=== PATIENT | female | born 2005 | race Caucasian/White ===

== ENCOUNTER 2025-06-17 15:09 | Inpatient (IN) | payer OTHER, SELFPAY ==
[2025-06-17] VITALS (12 sets, daily range): BP systolic 103–128; BP diastolic 57–75; PULSE 110–137; RESP 14–42; TEMP 38.1–38.4; O2SAT 98–100; BMI 23.8
[2025-06-17] MEDS: LIDOCAINE/PRILOCAINE 5 GM TOP (15:15)
--- NOTE | 2025-06-17 16:31 | ED.BACK ---
HPI - Back Pain/Injury General Chief Complaint: Back Pain/Injury Stated Complaint: back pain, n/v x 2 days Time Seen by Provider: 06/17/25 16:05 Source: patient History of Present Illness HPI Narrative: This is a 19-year-old female presents emergency department due to a week history of back pain, nausea, vomiting. She states that about a week ago she had dysuria and ?1 drop? of urine with blood noted in it. She went [place] an [place] the area where she was took some herbal supplements which she states helped with her dysuria but over the course of this last week she was developed bilateral back pain, nausea, and multiple episodes of vomiting last night. She also feels generally unwell. She denies any discharge. No other pertinent medical history. Does also report some suprapubic discomfort. Related Data Home Medications ?Medication ?Instructions ?Recorded ?Confirmed cholecalciferol (vitamin D3) 10 400 unit PO ##0 04/24/16 mcg/mL (400 unit/mL) oral drops Previous Rx's ?Medication ?Instructions ?Recorded amoxicillin 500 mg-potassium 1 tab PO TID #30 tabs 06/19/25 clavulanate 125 mg tablet (Augmentin) Allergies Allergy/AdvReac Type Severity Reaction Status Date / Time No Known Drug Allergies Allergy Verified 06/17/25 16:55 Review of Systems Review of Systems Narrative: GENERAL: Denies chills, fatigue, malaise, fever, sweats. HEENT: Denies sinus pain, ear pain, sore throat, difficulty swallowing, dizziness. RESPIRATORY: Denies dyspnea, cough, wheezing, hemoptysis, sputum. CARDIOVASCULAR: Denies chest pain, palpitations, orthopnea, edema, GASTROINTESTINAL: Reports nausea and vomiting Denies abdominal pain, diarrhea, constipation, melena. : Denies dysuria, frequency, incontinence, hematuria, urinary retention. MUSCULOSKELETAL: denies weakness, joint pain, or bony pain SKIN: Denies rash, skin lesions, or other NEUROLOGIC: Denies weakness, headache, numbness, change in speech, confusion, seizures, incoordination. PSYCHIATRIC: No concerning psychosocial issues. 12 point review of systems is negative except for those stated above Patient History Family History Grandfather Cancer Social History household members: significant other Smoking Status: Never smoker Smoking Status: Never smoker Exam Narrative Exam Narrative: GENERAL: Well-developed patient, in mild distress. HEAD: Atraumatic. Normocephalic. EYES: Pupils equal round and reactive. Extraocular motions intact. No scleral icterus. No injection or drainage. ENT: Nose without bleeding, purulent drainage. Throat without erythema, tonsillar hypertrophy or exudate. Airway patent. NECK: Trachea midline. Non tender EXTREMITIES: No edema or joint tenderness. NEURO: AOx3. SKIN: No rash or erythema of visible areas Abdomen: Suprapubic tenderness to palpation Back: Bilateral CVA tenderness to palpation Initial Vital Signs Initial Vital Signs: Vital Signs Temperature 101 F H 06/17/25 16:00 Pulse Rate 137 H 06/17/25 16:00 Respiratory Rate 18 06/17/25 16:00 Blood Pressure 114/72 06/17/25 16:00 Pulse Oximetry 98 06/17/25 16:00 Oxygen Delivery Method Room Air 06/17/25 16:00 Course Orders Ordered: Discontinued Medications Acetaminophen (Acetaminophen 325 Mg Tablet) 650 mg PO NOW ONE Stop: 06/17/25 18:35 Last Admin: 06/17/25 18:41 Dose: 650 mg Documented By: RB Acetaminophen (Acetaminophen 325 Mg Tablet) 1,000 mg PO Q6H PRN PRN Reason: Fever/Mild Pain (1-3) Last Admin: 06/19/25 04:07 Dose: 975 mg Documented By: Admin: 06/18/25 05:11 Dose: 1,000 mg Documented By: AD Hydromorphone HCl (Hydromorphone 1 Mg/Ml Syringe) 1 mg IV Q3H PRN PRN Reason: pain severe Last Admin: 06/18/25 23:30 Dose: 1 mg Documented By: Admin: 06/18/25 15:53 Dose: 1 mg Documented By: ZH Piperacillin Sod/Tazobactam (Sod 4.5 gm/ Sodium Chloride) 100 mls @ 200 mls/hr IV NOW ONE Stop: 06/17/25 16:10 Last Infusion: 06/17/25 17:27 Dose: Infused Documented By: Admin: 06/17/25 16:51 Dose: 200 mls/hr Documented By: CTS Sodium Chloride (Normal Saline 0.9%) 1,769.01 mls @ 589.67 mls/hr 30 ml/kg infuse over 3 hr (1769.01 ml) IV NOW ONE Stop: 06/17/25 19:08 Last Infusion: 06/17/25 18:59 Dose: Infused Documented By: Admin: 06/17/25 16:42 Dose: 589.67 mls/hr Documented By: MIREILLE Lactated Ringer's (Lactated Ringers) 1,000 mls @ 200 mls/hr IV CONT BRANDI Last Infusion: 06/19/25 00:55 Dose: Infused Documented By: Admin: 06/18/25 14:46 Dose: 200 mls/hr Documented By: Infusion: 06/18/25 14:46 Dose: Infused Documented By: Admin: 06/18/25 10:12 Dose: 200 mls/hr Documented By: Infusion: 06/18/25 06:21 Dose: Infused Documented By: Admin: 06/18/25 01:21 Dose: 200 mls/hr Documented By: AD Piperacillin Sod/Tazobactam (Sod 4.5 gm/ Sodium Chloride) 100 mls @ 25 mls/hr IV Q8H BRANDI Last Infusion: 06/18/25 08:46 Dose: Infused Documented By: Admin: 06/18/25 01:30 Dose: 25 mls/hr Documented By: AD Piperacillin Sod/Tazobactam (Sod 4.5 gm/ Sodium Chloride) 100 mls @ 25 mls/hr IV Q8H BRANDI Stop: 06/18/25 14:00 Last Infusion: 06/18/25 14:47 Dose: Infused Documented By: Admin: 06/18/25 10:11 Dose: 25 mls/hr Documented By: PAULA Sodium Chloride (Normal Saline 0.9%) 1,000 mls @ 150 mls/hr IV CONT BRANDI Last Admin: 06/19/25 09:45 Dose: 150 mls/hr Documented By: Infusion: 06/19/25 09:45 Dose: Infused Documented By: Admin: 06/19/25 03:37 Dose: 150 mls/hr Documented By: Infusion: 06/19/25 03:37 Dose: Infused Documented By: Admin: 06/18/25 20:49 Dose: 150 mls/hr Documented By: Admin: 06/18/25 10:01 Dose: Not Given Documented By: PAULA Piperacillin Sod/Tazobactam (Sod 3.375 gm/ Sodium Chloride) 100 mls @ 25 mls/hr IV Q8H [facility] Last Infusion: 06/19/25 13:44 Dose: Infused Documented By: Admin: 06/19/25 09:44 Dose: 25 mls/hr Documented By: Infusion: 06/19/25 06:43 Dose: Infused Documented By: Admin: 06/19/25 02:10 Dose: 25 mls/hr Documented By: Infusion: 06/19/25 00:07 Dose: Infused Documented By: Admin: 06/18/25 17:46 Dose: 25 mls/hr Documented By: PAULA Ibuprofen (Ibuprofen 600 Mg Tablet) 600 mg PO Q6HR PRN PRN Reason: Fever/Mild Pain (1-3) Lactulose (Lactulose 20 Gm/30 Ml Solution) 20 gm PO NOW ONE Stop: 06/19/25 11:23 Last Admin: 06/19/25 11:46 Dose: 20 gm Documented By: FELICIA Lidocaine/Prilocaine (Lidocaine/Prilocaine 5 Gm) 5 gm TOP NOW ONE Stop: 06/17/25 16:12 Last Admin: 06/17/25 15:15 Dose: 5 gm Documented By: MIREILLE Morphine Sulfate (Morphine 4 Mg/Ml Inj) 4 mg IV NOW ONE Stop: 06/17/25 16:56 Last Admin: 06/17/25 17:00 Dose: 4 mg Documented By: MIREILLE Naloxone HCl (Naloxone 0.4 Mg/Ml Vial) 0.2 mg IV Q2MIN PRN PRN Reason: Opiate Reversal Ondansetron HCl (Ondansetron 4 Mg/2 Ml Inj) 4 mg IV NOW ONE Stop: 06/17/25 17:03 Last Admin: 06/17/25 17:06 Dose: 4 mg Documented By: MIREILLE Ondansetron HCl (Ondansetron 4 Mg/2 Ml Inj) 4 mg IV Q4HR PRN PRN Reason: nausea Last Admin: 06/19/25 09:44 Dose: 4 mg Documented By: Admin: 06/18/25 22:01 Dose: 4 mg Documented By: Admin: 06/18/25 12:15 Dose: 4 mg Documented By: Admin: 06/18/25 08:01 Dose: 4 mg Documented By: Admin: 06/17/25 23:45 Dose: 4 mg Documented By: ALEM Oxybutynin (Oxybutynin 5 Mg Tablet) 5 mg PO NOW ONE Stop: 06/17/25 23:28 Last Admin: 06/18/25 02:00 Dose: 5 mg Documented By: ALEM Oxycodone HCl (Oxycodone Ir 5 Mg Tablet) 5 mg PO Q3H PRN PRN Reason: Pain, Moderate (4-6) Oxycodone HCl (Oxycodone Ir 10 Mg Tablet) 10 mg PO Q3H PRN PRN Reason: Pain, Severe (7-10) Last Admin: 06/18/25 05:05 Dose: 10 mg Documented By: Admin: 06/17/25 23:45 Dose: 10 mg Documented By: ALEM Vital Signs Vital signs: Vital Signs - 8 hr 06/17/25 16:00 06/17/25 16:37 06/17/25 16:37 Temperature 101 F H Pulse Rate 137 H 121 H Respiratory Rate 18 Blood Pressure 114/72 103/61 Pulse Oximetry 98 99 Oxygen Delivery Method Room Air 06/17/25 17:00 06/17/25 17:30 06/17/25 17:44 Temperature Pulse Rate 117 H 114 H 113 H Respiratory Rate 29 H 42 H 14 Blood Pressure Pulse Oximetry 100 100 100 Oxygen Delivery Method 06/17/25 17:44 06/17/25 17:54 06/17/25 17:54 Temperature Pulse Rate 111 H Respiratory Rate 25 H Blood Pressure 106/59 L 109/57 L Pulse Oximetry 100 Oxygen Delivery Method 06/17/25 18:00 06/17/25 18:00 06/17/25 18:43 Temperature 101.2 F H Pulse Rate 111 H 115 H Respiratory Rate 21 27 H Blood Pressure 110/57 L Pulse Oximetry 100 99 Oxygen Delivery Method 06/17/25 18:43 Temperature Pulse Rate Respiratory Rate Blood Pressure 109/67 Pulse Oximetry Oxygen Delivery Method MDM - Back Pain/Injury Lab Data 06/18/25 03:52 06/18/25 03:52 Labs: Lab Results 06/17/25 06/17/25 Range/Units 16:26 18:32 WBC 19.5 H (4.5-11.0) X10^3/uL RBC 4.20 (4.0-5.2) X10^6/uL Hgb 12.1 (12.0-16.0) g/dL Hct 35.7 L (36-46) % MCV 85.1 (80-100) fL MCH 28.8 (26-34) PG MCHC 33.9 (30-36) % RDW 13.7 (11.6-14.8) % Plt Count 266 (150-400) X10^3/uL Neut % (Auto) Not Reportable Lymph % (Auto) Not Reportable [place] % (Auto) Not Reportable Eos % (Auto) Not Reportable Baso % (Auto) Not Reportable Lymph # (Auto) Not Reportable [place] # (Auto) Not Reportable Baso # (Auto) Not Reportable Total Counted 100 Seg Neutrophils % 79.0 H (37-67) % Band Neutrophils % 11.0 H (3-7) % Lymphocytes % (Manual) 4.0 L (25-45) % Monocytes % (Manual) 6.0 (2-11) % Neutrophils # (Manual) 69440 H (5768-9511) /uL Toxic Granulation Present H Toxic Vacuolation Present H RBC Morphology Normal morphology Sodium 132 L (137-145) mmol/L Potassium 3.9 (3.4-5.1) mmol/L Chloride 102 (98-107) mmol/L Carbon Dioxide 19 L (22-32) mmol/L BUN 8 (7-17) mg/dL Creatinine 0.58 (0.52-1.04) mg/dL Estimated GFR > 60 (>60) mL/min BUN/Creatinine Ratio 13.8 (6-22) Glucose 82 (70-99) mg/dL Lactate 0.5 L (0.7-2.1) mmol/L Calcium 8.7 (8.4-10.2) mg/dL Total Bilirubin 0.6 (0.2-1.3) mg/dL AST 25 (14-36) IU/L ALT 13 (<35) IU/L Alkaline Phosphatase 76 (38-126) U/L Total Creatine Kinase Cancelled Troponin I Cancelled Total Protein 7.5 (6.3-8.2) g/dL Albumin 4.3 (3.5-5.0) g/dL Globulin 3.2 (1.7-4.1) g/dL Albumin/Globulin Ratio 1.3 (1.0-2.8) Procalcitonin 0.481 (<0.5) ng/mL Urine Color Yellow Urine Appearance Clear Urine pH 6.0 (4.5-8.0) Ur Specific [place] 1.010 (1.000-1.035) Urine Protein Negative (Negative) Urine Glucose (UA) Negative (Negative) g/dL Urine Ketones 3+ H (NEGATIVE) Urine Occult Blood 1+ H (Negative) Urine Nitrate Negative (Negative) Urine Bilirubin Negative (NEGATIVE) Urine Urobilinogen 1.0 (0.2) E.U./dL Ur Leukocyte Esterase Negative (NEGATIVE) Urine RBC 0-1/hpf (0-5/HPF) Urine WBC 1-5/hpf (0-5/HPF) Ur Squamous Epith Cells None seen (0-5/HPF) Urine Bacteria None seen (None) Ur Culture Indicated? Cult not indicated Vol Urine Centrifuged 10ml (spun) Imaging Data CT scan - abdomen/pelvis: Radiologist's Impression: [place] [address] CT Scan Report Signed Patient: Mary Lou Rodriguez MR#: [id number] : 2005 Acct:[id number] Age/Sex: 19 / F Date of Service: 06/17/25 Loc: ED Accession Number: [id number] Procedure: CT abdomen pelvis w con Ordering Provider: Evangelista Mai PA-C PROCEDURE: CT ABDOMEN PELVIS W CON INDICATIONS: Bilat CVA TTP, leukocytosis TECHNIQUE: After the administration of intravenous contrast, axial sections acquired from the lung bases to the pubic symphysis. Coronal and sagittal reformats were performed. For radiation dose reduction, the following was used: automated exposure control, adjustment of mA and/or kV according to patient size. COMPARISON: None. FINDINGS: Image quality: Diagnostic. Lower Chest: No significant findings. ABDOMEN: Liver: No solid mass. Gallbladder: No radiopaque gallstones or wall thickening. Biliary ducts: No biliary dilation. Pancreas: No ductal dilation. Spleen: Size is within normal limits. Adrenal Glands: No adrenal nodules. Kidneys and Ureters: Focal area of hypoattenuation in the right kidney midpole cortex. Mild enhancement of the right renal collecting system. No hydronephrosis. No nephrolithiasis. Stomach and Bowel: Normal colonic caliber, without significant wall thickening. Normal appendix. Peritoneum: No abnormal intraperitoneal fluid. No free air. Ventral Wall: No significant ventral hernia. Abdominal Nodes: No retroperitoneal or mesenteric adenopathy by size criteria. Vessels: Aorta and inferior vena cava are normal in size. PELVIS: Pelvic Organs: Unremarkable. Bladder: Mild diffuse bladder wall thickening. Pelvic Nodes: No enlarged lymph nodes. Miscellaneous: No inguinal hernias are seen. Bones: No aggressive osseous abnormality. IMPRESSION: Acute right pyelonephritis. Dictated by: Cali Carias M.D. on 06/17/2025 at 18:15 Approved by: Cali Carias M.D. on 06/17/2025 at 18:19 MDM Narrative Medical decision making narrative: ED course: This is a 19-year-old female presenting to the emergency department due to continued back pain for the last week as well as nausea and vomiting. She was initially experiencing UTI symptoms about a week ago and took some herbal medicine which states helped with her UTI symptoms but over the last week has developed lower back pain, abdominal discomfort, and nausea and vomiting. Lab work remarkable for a white count of 19.5. Lactate within normal limits. Patient has criteria for sepsis due to white count, tachycardia, and temp of 101?. IV fluids ordered as well as blood cultures, and IV Zosyn. Morphine use for pain control. CT scan showed right-sided pyelonephritis. Discussed case with hospitalist, Dr. Malloy who who kindly accepted the pt for admission. CC: Back pain Complicating co-morbidities: None Data collected from: Previous notes Medical records reviewed: Patient was not been to this emergency department the past Differential considered, but not limited to: Pyelonephritis, nephrolithiasis, UTI Exam documented above, pertinent findings include: Bilateral CVA tenderness to palpation Lab Test results independently reviewed as above. Pertinent findings: CBC remarkable for white count of 19.5. CMP unremarkable. Lactate within normal limits. Urine positive for ketones and blood. Imaging studies independently reviewed: CT showed right-sided pyelonephritis Scores Used: None MIPS Elements: None Consultations: None Treatments: IV Zosyn, morphine, fluids, p.o. Tylenol Re-evaluations: Patient reports pain improved after morphine Discussion: Discussed plan with the patient was comfortable with the plan Diagnosis: Pyelonephritis, sepsis Disposition: see below, along with detailed discharge instructions that have been reviewed with patient as well as indications for ED re-evaluation and additional outpatient follow up Discharge Plan Departure Patient Disposition: Admitted As Inpatient Clinical Impression: Pyelonephritis Sepsis Qualifiers: Sepsis type: sepsis due to unspecified organism Sepsis acute organ dysfunction status: unspecified Qualified Code(s): A41.9 - Sepsis, unspecified organism Admit Date/Time: 06/17/25 19:46 Admit Provider: Manuel Mcgowan
[2025-06-17] MEDS: SODIUM CHLORIDE 0.9% 1,769.01 ML 589.67 ML IV (16:42)
[2025-06-17 16:45] LABS: Hematocrit 35.7 % (36-46); Hemoglobin 12.1 g/dL (12.0-16.0); Mean Corpuscular HGB Conc 33.9 % (30-36); Mean Corpuscular Hemoglobin 28.8 PG (26-34); Mean Corpuscular Volume 85.1 fL (80-100); Platelet Count 266 X10^3/uL (150-400)
[2025-06-17 16:47] LABS: Add Manual Diff / Slide Review YES
--- NOTE | 2025-06-17 16:50 | DI.CT.S_ITS ---
PROCEDURE: CT ABDOMEN PELVIS W CON INDICATIONS: Bilat CVA TTP, leukocytosis TECHNIQUE: After the administration of intravenous contrast, axial sections acquired from the lung bases to the pubic symphysis. Coronal and sagittal reformats were performed. For radiation dose reduction, the following was used: automated exposure control, adjustment of mA and/or kV according to patient size. COMPARISON: None. FINDINGS: Image quality: Diagnostic. Lower Chest: No significant findings. ABDOMEN: Liver: No solid mass. Gallbladder: No radiopaque gallstones or wall thickening. Biliary ducts: No biliary dilation. Pancreas: No ductal dilation. Spleen: Size is within normal limits. Adrenal Glands: No adrenal nodules. Kidneys and Ureters: Focal area of hypoattenuation in the right kidney midpole cortex. Mild enhancement of the right renal collecting system. No hydronephrosis. No nephrolithiasis. Stomach and Bowel: Normal colonic caliber, without significant wall thickening. Normal appendix. Peritoneum: No abnormal intraperitoneal fluid. No free air. Ventral Wall: No significant ventral hernia. Abdominal Nodes: No retroperitoneal or mesenteric adenopathy by size criteria. Vessels: Aorta and inferior vena cava are normal in size. PELVIS: Pelvic Organs: Unremarkable. Bladder: Mild diffuse bladder wall thickening. Pelvic Nodes: No enlarged lymph nodes. Miscellaneous: No inguinal hernias are seen. Bones: No aggressive osseous abnormality. IMPRESSION: Acute right pyelonephritis. Dictated by: Cali aCrias M.D. on 06/17/2025 at 18:15 Approved by: Cali Carias M.D. on 06/17/2025 at 18:19
[2025-06-17] MEDS: PIPERACILLIN/TAZO 4.5 GM in SODIUM CHLORIDE 0.9% 100 ML IV (16:51)
[2025-06-17 16:59] LABS: Lactate (Lactic Acid) 0.5 mmol/L (0.7-2.1)
[2025-06-17 17:00] LABS: Alanine Aminotransferase 13 IU/L (<35); Albumin 4.3 g/dL (3.5-5.0); Albumin Globulin Ratio 1.3 (1.0-2.8); Alkaline Phosphatase 76 U/L (38-126); Blood Urea Nitrogen 8 mg/dL (7-17); Calcium 8.7 mg/dL (8.4-10.2); Carbon Dioxide 19 mmol/L (22-32); Chloride 102 mmol/L (98-107); Estimated Glomerular Filt Rate > 60 mL/min (>60); Globulin 3.2 g/dL (1.7-4.1); Glucose 82 mg/dL (70-99); HEMOLYSIS < 15 (0-50); Potassium 3.9 mmol/L (3.4-5.1); Sodium 132 mmol/L (137-145); Total Protein 7.5 g/dL (6.3-8.2)
[2025-06-17] MEDS: MORPHINE 4 MG/ML INJ IV (17:00)
[2025-06-17 17:03] LABS: Band Neutrophils Percent 11.0 % (3-7); Lymphocytes Percent Manual 4.0 % (25-45); Monocytes Percent Manual 6.0 % (2-11); Neutrophils Absolute Manual 17550 /uL (3000-5900); Segmented Neutrophils Percent 79.0 % (37-67); Total Cells Counted 100; Toxic Granulation Present
[2025-06-17 17:04] LABS: Toxic Vacuolation Present
[2025-06-17 17:05] LABS: RBC Morphology Normal Morphology
[2025-06-17] MEDS: ONDANSETRON 4 MG/2 ML INJ IV ×2 (17:06→23:45)
[2025-06-17 17:17] LABS: Procalcitonin 0.481 ng/mL (<0.5)
[2025-06-17] MEDS: ACETAMINOPHEN 325 MG TABLET 650 MG PO (18:41)
[2025-06-17 18:54] LABS: Appearance Urine UA CLEAR; Bilirubin Urine UA NEGATIVE (NEGATIVE); Color Urine UA YELLOW; Glucose Urine UA NEGATIVE (Negative); Ketones Urine UA 3+ (NEGATIVE); Leukocyte Esterase Urine UA NEGATIVE (NEGATIVE); Nitrite Urine UA NEGATIVE (Negative); Occult Blood Urine UA 1+ (Negative); Protein Urine UA NEGATIVE (Negative); Specific Gravity Urine UA 1.010 (1.000-1.035); Urobilinogen Urine UA 1.0 E.U./dL (0.2)
[2025-06-17 18:59] LABS: pH Urine UA 6.0 (4.5-8.0)
[2025-06-17 19:14] LABS: Culture Indicated Urine Cult Not Indicated
--- NOTE | 2025-06-17 23:49 | PM.HP.1 ---
History of Present Illness History of Present Illness Date Patient Seen: 06/17/25 Time Patient Seen: 23:30 Chief complaint: back pain, n/v x 2 days Narrative: 19 y/o without PMH developed dysuria a week ago. She was using some OTC herbal supplements and presented septic with acute right pyelonephritis. Febrile, chills, tachycardic. Urin infected, leukpocytosis. In the ED treated with IVFs and antibiotic. Admitted to medicine for further treatment with IVFs and IV antibiotic. PFSH Family History Grandfather Cancer Social History household members: significant other Smoking Status: Never smoker Meds Home Medications and Allergies Home Medications ?Medication ?Instructions ?Recorded ?Confirmed ?Type cholecalciferol (vitamin D3) 10 400 unit PO ##0 04/24/16 History mcg/mL (400 unit/mL) oral drops Allergies Allergy/AdvReac Type Severity Reaction Status Date / Time No Known Drug Allergies Allergy Verified 06/17/25 16:55 Review of Systems Review of Systems Narrative: General - malaise, chills UG - low back pain, right-sided abdominal pain, w/o hematuria GI - nausea, w/o changes of bowel habits Skin - w/o rashes CVS - w/o palpitations or chest pain RS - w/o shortness of breath Exam Vital Signs (past 8 hours): - 06/17/25 16:00 06/17/25 16:37 06/17/25 16:37 Temperature 101 F H Pulse Rate 137 H 121 H Respiratory Rate 18 Blood Pressure 114/72 103/61 Pulse Oximetry 98 99 Oxygen Delivery Method Room Air 06/17/25 17:00 06/17/25 17:30 06/17/25 17:44 Temperature Pulse Rate 117 H 114 H 113 H Respiratory Rate 29 H 42 H 14 Blood Pressure Pulse Oximetry 100 100 100 Oxygen Delivery Method 06/17/25 17:44 06/17/25 17:54 06/17/25 17:54 Temperature Pulse Rate 111 H Respiratory Rate 25 H Blood Pressure 106/59 L 109/57 L Pulse Oximetry 100 Oxygen Delivery Method 06/17/25 18:00 06/17/25 18:00 06/17/25 18:43 Temperature 101.2 F H Pulse Rate 111 H 115 H Respiratory Rate 21 27 H Blood Pressure 110/57 L Pulse Oximetry 100 99 Oxygen Delivery Method 06/17/25 18:43 06/17/25 19:00 06/17/25 19:00 Temperature Pulse Rate 110 H Respiratory Rate 17 Blood Pressure 109/67 113/66 Pulse Oximetry 100 Oxygen Delivery Method 06/17/25 19:30 06/17/25 19:30 06/17/25 20:00 Temperature Pulse Rate 125 H 124 H Respiratory Rate 33 H Blood Pressure 128/64 Pulse Oximetry 100 98 Oxygen Delivery Method 06/17/25 20:00 Temperature Pulse Rate Respiratory Rate Blood Pressure 106/61 Pulse Oximetry Oxygen Delivery Method Oxygen Delivery Method Room Air Narrative Exam Narrative: General - in no distress HEENT - normocephalic, supple neck CVS - tachycardic, regular RS - tachypneic ABD - w/o peritoneal signs Skin - no rashes Neuro - intact, lucid Objective Imaging CT scan - abdomen: Radiologist's impression: Kidneys and Ureters: Focal area of hypoattenuation in the right kidney midpole cortex. Mild enhancement of the right renal collecting system. No hydronephrosis. No nephrolithiasis. Mild diffuse bladder wall thickening. Labs 06/17/25 16:26 06/17/25 16:26 Labs: Laboratory Results - last 24 hr 06/17/25 06/17/25 16:26 18:32 WBC 19.5 H RBC 4.20 Hgb 12.1 Hct 35.7 L MCV 85.1 MCH 28.8 MCHC 33.9 RDW 13.7 Plt Count 266 Neut % (Auto) Not Reportable Lymph % (Auto) Not Reportable [place] % (Auto) Not Reportable Eos % (Auto) Not Reportable Baso % (Auto) Not Reportable Lymph # (Auto) Not Reportable [place] # (Auto) Not Reportable Baso # (Auto) Not Reportable Total Counted 100 Seg Neutrophils % 79.0 H Band Neutrophils % 11.0 H Lymphocytes % (Manual) 4.0 L Monocytes % (Manual) 6.0 Neutrophils # (Manual) 91913 H Toxic Granulation Present H Toxic Vacuolation Present H RBC Morphology Normal morphology Sodium 132 L Potassium 3.9 Chloride 102 Carbon Dioxide 19 L BUN 8 Creatinine 0.58 Estimated GFR > 60 BUN/Creatinine Ratio 13.8 Glucose 82 Lactate 0.5 L Calcium 8.7 Total Bilirubin 0.6 AST 25 ALT 13 Alkaline Phosphatase 76 Total Creatine Kinase Cancelled Troponin I Cancelled Total Protein 7.5 Albumin 4.3 Globulin 3.2 Albumin/Globulin Ratio 1.3 Procalcitonin 0.481 Urine Color Yellow Urine Appearance Clear Urine pH 6.0 Ur Specific [place] 1.010 Urine Protein Negative Urine Glucose (UA) Negative Urine Ketones 3+ H Urine Occult Blood 1+ H Urine Nitrate Negative Urine Bilirubin Negative Urine Urobilinogen 1.0 Ur Leukocyte Esterase Negative Urine RBC 0-1/hpf Urine WBC 1-5/hpf Ur Squamous Epith Cells None seen Urine Bacteria None seen Ur Culture Indicated? Cult not indicated Vol Urine Centrifuged 10ml (spun) Assessment & Plan Assessment and plan (1) Sepsis: Qualifiers: Sepsis acute organ dysfunction status: unspecified Sepsis type: sepsis due to unspecified organism Qualified Code(s): A41.9 - Sepsis, unspecified organism Status: Acute (2) Pyelonephritis: Status: Acute Assessment & Plan narrative: Acute Rt Pyelonephritis - Zosyn - pain management - antiemetic Sepsis - IVFs DVT prophylaxis - SCDs Patient consented to telemedicine, two-way, audio-visual encounter with RN assisting with exam. Patient [facility] at [facility], provider located in [place]. Time-Based Coding :: [TOTAL MINUTES] spent with patient and on the chart (including review of chart, obtaining history, exam, reviewing outside data, placing orders, documenting exam and treatment plan, and counseling patient) on [DATE]. Quality VTE Deep Vein Thrombosis/Pulmonary Embolism Present on Admission: No
[2025-06-18] MEDS: LACTATED RINGERS 1,000 ML 200 ML IV ×3 (01:21→14:46)
[2025-06-18] MEDS: PIPERACILLIN/TAZO 4.5 GM in SODIUM CHLORIDE 0.9% 100 ML IV ×2 (01:30→10:11)
[2025-06-18 04:47] LABS: Add Manual Diff / Slide Review NO; Hematocrit 32.1 % (36-46); Hemoglobin 10.7 g/dL (12.0-16.0); Lymphocytes Absolute Auto 1000 /uL (1100-4500); Mean Corpuscular HGB Conc 33.2 % (30-36); Mean Corpuscular Hemoglobin 28.8 PG (26-34); Mean Corpuscular Volume 86.8 fL (80-100); Platelet Count 200 X10^3/uL (150-400)
[2025-06-18] MEDS: ACETAMINOPHEN 325 MG TABLET 1000 MG PO (05:11)
[2025-06-18 05:12] LABS: Blood Urea Nitrogen 8 mg/dL (7-17); Calcium 7.8 mg/dL (8.4-10.2); Carbon Dioxide 22 mmol/L (22-32); Chloride 104 mmol/L (98-107); Estimated Glomerular Filt Rate > 60 mL/min (>60); Glucose 106 mg/dL (70-99); HEMOLYSIS < 15 (0-50); Potassium 4.2 mmol/L (3.4-5.1); Sodium 131 mmol/L (137-145)
[2025-06-18 06:00] VITALS: BP 97/53; PULSE 108; RESP 16; TEMP 37.4; O2SAT 99
--- NOTE | 2025-06-18 07:19 | PM.PN.1 ---
Subjective Subjective Interval history: Summary: 19 y/o without PMH developed dysuria a week ago. She was using some OTC herbal supplements and presented septic with acute right pyelonephritis. Febrile, chills, tachycardic. Urin infected, leukpocytosis. In the ED treated with IVFs and antibiotic. Admitted to medicine for further treatment with IVFs and IV antibiotic. S: No vomiting, nausea is improved but still no appetite. Blood pressures remained soft and she was on IV fluids at 1:50 a.m.. No history of kidney or O: NAD, alert and oriented. Fluent speech. Lungs are clear, normal rate and effort. Heart is regular, no murmur gallop or rub. Abdomen is soft, non distended. Extremities are free of edema. IMAGING: Acute right pyelonephritis. LABS: WBC 14 A/P: 1. Pyelonephritis, active. PLAN: -continue IV fluids and IV antibiotics. -follow cultures. -anticipate discharge on June 19. Full code. Exam Vital Signs (past 8 hours): - 06/18/25 06:00 Temperature 99.4 F Pulse Rate 108 H Respiratory Rate 16 Blood Pressure 97/53 L Pulse Oximetry 99 Oxygen Flow Rate 0 Oxygen Delivery Method Room Air Oxygen Flow Rate 0 Objective Labs 06/18/25 03:52 06/18/25 03:52 Labs: Laboratory Results - last 24 hr 06/17/25 06/17/25 06/18/25 16:26 18:32 03:52 WBC 19.5 H 14.0 H RBC 4.20 3.70 L Hgb 12.1 10.7 L Hct 35.7 L 32.1 L MCV 85.1 86.8 MCH 28.8 28.8 MCHC 33.9 33.2 RDW 13.7 13.7 Plt Count 266 200 Neut % (Auto) Not Reportable 80.4 H Lymph % (Auto) Not Reportable 7.5 L [place] % (Auto) Not Reportable 10.5 Eos % (Auto) Not Reportable 0.1 L Baso % (Auto) Not Reportable 1.5 Neut # (Auto) 60275 H Lymph # (Auto) Not Reportable 1000 L [place] # (Auto) Not Reportable 1500 H Eos # (Auto) 0 Baso # (Auto) Not Reportable 200 H Total Counted 100 Seg Neutrophils % 79.0 H Band Neutrophils % 11.0 H Lymphocytes % (Manual) 4.0 L Monocytes % (Manual) 6.0 Neutrophils # (Manual) 03607 H Toxic Granulation Present H Toxic Vacuolation Present H RBC Morphology Normal morphology Sodium 132 L 131 L Potassium 3.9 4.2 Chloride 102 104 Carbon Dioxide 19 L 22 BUN 8 8 Creatinine 0.58 0.65 Estimated GFR > 60 > 60 BUN/Creatinine Ratio 13.8 12.3 Glucose 82 106 H Lactate 0.5 L Calcium 8.7 7.8 L Total Bilirubin 0.6 AST 25 ALT 13 Alkaline Phosphatase 76 Total Creatine Kinase Cancelled Troponin I Cancelled Total Protein 7.5 Albumin 4.3 Globulin 3.2 Albumin/Globulin Ratio 1.3 Procalcitonin 0.481 Urine Color Yellow Urine Appearance Clear Urine pH 6.0 Ur Specific [place] 1.010 Urine Protein Negative Urine Glucose (UA) Negative Urine Ketones 3+ H Urine Occult Blood 1+ H Urine Nitrate Negative Urine Bilirubin Negative Urine Urobilinogen 1.0 Ur Leukocyte Esterase Negative Urine RBC 0-1/hpf Urine WBC 1-5/hpf Ur Squamous Epith Cells None seen Urine Bacteria None seen Ur Culture Indicated? Cult not indicated Vol Urine Centrifuged 10ml (spun) PFSH Family History Grandfather Cancer Social History household members: significant other Smoking Status: Never smoker Assessment & Plan Time-Based Coding :: [TOTAL MINUTES] spent with patient and on the chart (including review of chart, obtaining history, exam, reviewing outside data, placing orders, documenting exam and treatment plan, and counseling patient) on [DATE]. Quality VTE Deep Vein Thrombosis/Pulmonary Embolism Present on Admission: No
[2025-06-18] MEDS: ONDANSETRON 4 MG/2 ML INJ IV ×3 (08:01→22:01)
[2025-06-18 08:31] VITALS: BP 87/55; PULSE 97
[2025-06-18 12:35] VITALS: BP 90/56; PULSE 91; RESP 14; TEMP 36.5; O2SAT 96
--- NOTE | 2025-06-18 15:08 | CM.DANOTE ---
DCP Assessment Note: Pt is a 19yo female, resident of [place], is admitted for sepsis, R pyelonephritis. Pt's Primary Care Provider is unknown and insurance is Medicaid. Reviewed chart and discussed with multidisciplinary team pt's medical status and initial discharge needs. Per Provider, ordering IV fluids and antibiotics, anticipating a discharge on 06/19. No discharge needs identified, possibly assistance with [facility] priority boarding if medically necessary. Plan: Anticipating discharge with family on 06/19 or when medically cleared. CM team will follow closely for coordination of discharge plans. LIZETH Kitchen Discharge Planning/Care Management CM Discharge Assessment Start: 06/17/25 20:24 Freq: Status: Active Protocol: Document 06/18/25 14:56 MW (Rec: 06/18/25 15:08 MW [id number]) Discharge Planning Assessment Assigned Discharge ELYSE Kinsey Radiologist Diagnostic Insurance Medicaid Advance Directives? No History Provided By Patient Prior Living House Arrangements Household Members significant other Independent with ADL Yes 's Is patient alert and Yes oriented? Discharge Plan Home Transportation Family Arrangement Review Status In Process Please Provide Date 06/18/25 Initial DC Assessment Was Performed Next Review Type Continued Stay Review
[2025-06-18 16:00] VITALS: BP 95/64; PULSE 79; RESP 15; TEMP 36.7; O2SAT 98
[2025-06-18] MEDS: PIPERACILLIN/TAZO 3.375 GM in SODIUM CHLORIDE 0.9% 100 ML IV (17:46)
[2025-06-18 20:00] VITALS: BP 96/70; PULSE 89; RESP 16; TEMP 37.1; O2SAT 99
[2025-06-18] MEDS: SODIUM CHLORIDE 0.9% 1,000 ML 150 ML IV (20:49)
[2025-06-19] MEDS: PIPERACILLIN/TAZO 3.375 GM in SODIUM CHLORIDE 0.9% 100 ML IV ×2 (02:10→09:44)
[2025-06-19] MEDS: SODIUM CHLORIDE 0.9% 1,000 ML 150 ML IV ×2 (03:37→09:45)
[2025-06-19 04:00] VITALS: BP 95/49; PULSE 101; RESP 16; TEMP 37.3; O2SAT 99
[2025-06-19] MEDS: ACETAMINOPHEN 325 MG TABLET 1000 MG PO (04:07)
[2025-06-19 08:00] VITALS: BP 102/68; PULSE 79; RESP 17; TEMP 37.1; O2SAT 97
[2025-06-19] MEDS: ONDANSETRON 4 MG/2 ML INJ IV (09:44)
[2025-06-19] MEDS: LACTULOSE 20 GM/30 ML SOLUTION PO (11:46)
[2025-06-19 12:00] VITALS: BP 110/59; PULSE 84; RESP 17; TEMP 37.1; O2SAT 98
--- NOTE | 2025-06-19 14:39 | PM.DS.1 ---
History of Present Illness History of Present Illness Date Patient Seen: 06/19/25 Chief complaint: back pain, n/v x 2 days Narrative: Chief complaint: Pyelonephritis with sepsis History of present illness: 19-year-old female with dysuria starting 1 week ago which did not resolve with herbal and OTC remedies came into emergency room septic with white count [id number]. Patient was treated with IV Zosyn with stepwise improvement in symptoms and was ready for discharge and deescalation to oral antibiotics at the time of this dictation Review of systems: No No fever or chills No chest pain No nausea vomiting Appetite returning Physical exam: No acute distress No labored respirations Alert and animated Assessment and plan: Pyelonephritis resolving with treatment deescalate to Augmentin from Zosyn 35 minutes were involved in the discharge this patient including [id number] evaluation discussion with review of cultures and objective laboratory and imaging studies Discharge Providers Provider Date of admission: 06/17/25 19:46 Discharge Date: 06/19/25 Discharge provider: Popeye Cash MD Exam Vital Signs (past 8 hours): - 06/19/25 08:00 06/19/25 09:15 06/19/25 12:00 Temperature 98.7 F 98.8 F Pulse Rate 79 84 Respiratory Rate 17 17 Blood Pressure 102/68 110/59 L Pulse Oximetry 97 98 Oxygen Delivery Method Room Air Oxygen Delivery Method Room Air Oxygen Flow Rate 0 Objective Labs 06/18/25 03:52 06/18/25 03:52 PFSH Family History Grandfather Cancer Social History household members: significant other Smoking Status: Never smoker Discharge Plan Discharge Plan Patient Disposition: Home Discharge orders & Medications Prescriptions: New amoxicillin-pot clavulanate [Augmentin] 500-125 mg tablet 1 tab PO TID Qty: 30 0RF Continued cholecalciferol (vitamin D3) 400 UNIT/1 ML drops 400 unit PO Qty: 0 Visit Report/Discharge Packet Stand Alone Forms: Patient Portal/API Quality VTE Deep Vein Thrombosis/Pulmonary Embolism Present on Admission: No
--- NOTE | 2025-06-19 14:57 | CM.DPC ---
DCP Discharge Home Per MD, pt medically stable to d/c home today with outpt f/u and no identified barriers to discharge. SW met bedside with pt and Sig Other and they confirm that they were able to get on [employer] and enrolled pt in [employer] for insurance today but they have completed the [employer] Application as well and plan to turn it in today and will follow up mid week with Patient Accounts. Requesting Priority Board Pass back to [place] as pt still feeling poorly and late discharge in the afternoon on a weekend and therefore unable to get a timely ferry Res[place]. Copy of Priority Board Pass printed and given to patient. ELYSE De La Cruz
--- NOTE | 2025-06-19 17:10 | PC.NURSE ---
Pt discharged home 1645, ambulated off floor accompanied by spouse and hospital staff. IV removed, discharge teaching completed including new medications, worsening symptoms and the importance of follow up/having a primary care provider. Questions answered and concerns addressed. Pt left the floor with all belongings.
== END 2025-06-19 16:45 | disposition home or self-care (01) | DRG 720 ==
LOC: ED 16:05 → AC 19:46
PROVIDERS: Admitting Provider Internal Medicine; Emergency Provider Physician Assistant Medical; Referring Provider Physician Assistant Medical; Visit Provider Internal Medicine
DX: A41.9 Sepsis, unspecified organism (principal); N10 Acute pyelonephritis
CPT/HCPCS: 36415; 74177; 80048; 80053; 81001; 83605; 84145; 85007; 85025; 87040; 96361; 96365; 96375; 99284; J1171; J2272; J2405; J2543; J7030; J7050; J7120; Q9967